=== PATIENT | male | born 1950 | race Caucasian/White ===

== ENCOUNTER 2019-05-13 17:47 | Emergency (ER) | payer OTHER ==
[2019-05-13] MEDS ORDERED: TETANUS & DIPHTHERIA TOX,ADULT 0.5 ML VIAL ONE (18:40)
--- NOTE | 2019-05-13 19:05 | RAD REPORT ---
EXAM DESCRIPTION: - Finger-Thumb Left - 05/13/2019 6:46 pm CLINICAL HISTORY: laceration injury COMPARISON: None. TECHNIQUE: A three-view left thumb examination was performed. FINDINGS: No fracture or acute bone finding. The first MCP joint and IP joint show no suspicious fin dings. No foreign body in the soft tissues of the thumb. No radiographic finding that would indicate intra-articular extension of the laceration. IMPRESSION: No acute bone, joint or soft tissue finding.
[2019-05-13] MEDS ORDERED: LIDOCAINE 1% MPF 5 ML VIAL ONE (19:14)
[2019-05-13] MEDS ORDERED: BUPIVACAINE 0.5% PF 10 ML VIAL ONE (19:14)
[2019-05-13] MEDS ORDERED: DOXYCYCLINE 100 MG CAP PO ONE (19:34)
--- NOTE | 2019-05-13 19:44 | ER ---
Nurse's Notes [facility] Name: James Nicolas Age: 68 yrs Sex: Male : 1950 Arrival Date: 05/13/2019 Time: 17:48 Bed 7 Private MD: Diagnosis: Laceration without foreign body of left thumb without damage to nail Presentation: 05/13 17:57 Presenting complaint: Patient states: left thumb laceration with a filet knife while sv cutting fish. Transition of care: patient was not received from another setting of care. Complicating Factors: There are no complicating factors for this patient. Onset of symptoms was May 13, 2019 at 11:00. Risk Assessment: Do you want to hurt yourself or someone else? Patient reports no desire to harm self or others. Initial Sepsis Screen: Does the patient meet any 2 criteria? No. Patient's initial sepsis screen is negative. Does the patient have a suspected source of infection? No. Patient's initial sepsis screen is negative. Care prior to arrival: None. 17:57 Method Of Arrival: Ambulatory sv 17:57 Acuity: TO 3 sv Historical: - Allergies: 17:57 No Known Drug Allergies; sv - Home Meds: 18:04 Phenytoin Oral [Active]; aa5 - PMHx: 18:04 epilepsy; aa5 - PSHx: 17:57 Carpal Tunnel Repair; sv - Immunization history:: Last tetanus immunization: unknown. - Ebola Screening: : No symptoms or risks identified at this time. Screenin:04 Abuse screen: Denies threats or abuse. Nutritional screening: No deficits noted. aa5 Tuberculosis screening: No symptoms or risk factors identified. Fall Risk Secondary diagnosis (15 points) seizures, Total Day Fall Scale indicates No Risk (0-24 pts). Assessment: 18:04 General: Appears comfortable, Behavior is calm, cooperative. Pain: Complains of pain in aa5 knuckle of left thumb Pain currently is 0 out of 10 on a pain scale. Neuro: Level of Consciousness is awake, alert, obeys commands, Oriented to person, place, time, situation. Cardiovascular: Patient's skin is warm and dry. Respiratory: Airway is patent Respiratory effort is even, unlabored, Respiratory pattern is regular, symmetrical. GI: No signs and/or symptoms were reported involving the gastrointestinal system. : No signs and/or symptoms were reported regarding the genitourinary system. EENT: No signs and/or symptoms were reported regarding the EENT system. Derm: Skin is pink, warm \\T\\ dry. Musculoskeletal: Range of motion: intact in all extremities. Injury Description: Laceration sustained to knuckle of left thumb is approximately 1cm long, no active bleeding noted. Pt states "I put some glue and iodine on it" was sustained 6-12 hours ago. 18:44 Reassessment: Patient is alert, oriented x 3, equal unlabored respirations, skin aa5 warm/dry/pink. Awaiting x-ray results . 19:08 General: Appears comfortable, Behavior is appropriate for age. Pain: Denies pain. ea Neuro: Level of Consciousness is awake, alert, obeys commands, Oriented to person, place, time, situation. Cardiovascular: Patient's skin is warm and dry. Respiratory: Airway is patent Respiratory effort is even, unlabored, Respiratory pattern is regular, symmetrical. Derm: Skin is pink, warm \\T\\ dry. Injury Description: Laceration sustained to palmar aspect of distal phalanx of left thumb was sustained 6-12 hours ago. 19:52 Reassessment: Patient and/or family updated on plan of care and expected duration. Pain ea level reassessed. Patient is alert, oriented x 3, equal unlabored respirations, skin warm/dry/pink. Discharge instruction given to patient, verbalized the understanding of instruction. Pt left ED ambulatory accompanied by family. Vital Signs: 17:57 BP 133 / 91; Pulse 62; Resp 16; Temp 97; Pulse Ox 98% ; Weight 68.49 kg; Height 5 ft. 8 sv in. (172.72 cm); Pain 0/10; 19:44 BP 130 / 80; Pulse 60; Resp 18; Pulse Ox 98% on R/A; ea 17:57 Body Mass Index 22.96 (68.49 kg, 172.72 cm) sv ED Course: 17:48 Patient arrived in ED. as 17:57 Triage completed. sv 18:01 Cassidy Tony, RN is Primary Nurse. aa5 18:04 Arm band placed on Patient placed in an exam room, on a stretcher. aa5 18:04 Patient has correct armband on for positive identification. aa5 18:18 Arnaldo Boyle PA is PHCP. cp 18:18 Erasmo Hall MD is Attending Physician. cp 18:46 XRAY Finger-Thumb Left In Process Unspecified. EDMS 18:59 Report given to Maricarmen, SRIDEVI and SRIDEVI Rust. aa5 19:46 No provider procedures requiring assistance completed. Patient did not have IV access ea during this emergency room visit. 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 Lot #: [id number]. } Route: IM; Site: right deltoid; 19:37 Follow up: Response: No adverse reaction ea 19:31 Not Given (Physician Discretion): Lidocaine (1 %) 10 ml 5 ml Infiltration once; to ea bedside 19:31 Not Given (Physician Discretion): Bupivacaine (0.5 %) 10 ml 10 ml Infiltration once ea 19:36 Drug: Doxycycline 100 mg Route: PO; ea 19:46 Follow up: Response: No adverse reaction ea Outcome: 19:43 Discharge ordered by MD. cp 19:53 Discharged to home ambulatory, with family. rr5 19:53 Condition: stable 19:53 Discharge instructions given to patient, Instructed on discharge instructions, follow up and referral plans. medication usage, Demonstrated understanding of instructions, follow-up care, medications, Prescriptions given X 1. 19:54 Patient left the ED. ea Signatures: Dispatcher [employer] EDSC Anay Garcia, Maribell Dugan RN, Audri, RN RN aa5 Arnaldo Boyle PA PA cp Antunez, Elena, RN RN ea Roque, Raymond, RN RN rr5
--- NOTE | 2019-05-13 19:44 | EDPHYS ---
Physician Documentation [facility] Name: James Nicolas Age: 68 yrs Sex: Male : 1950 Arrival Date: 05/13/2019 Time: 17:48 Bed 7 Private MD: ED Physician Erasmo Hall HPI: 05/13 18:24 This 68 yrs old Male presents to ER via Ambulatory with complaints of cp Laceration - Thumb. 18:25 The patient or guardian reports injury, a laceration. cp 18:25 Context: resulted from knife used to cut pieces of fish. cp 18:25 The complaints affect the dorsal side interphalangeal joint left thumb. Onset: The cp symptoms/episode began/occurred today. Associated signs and symptoms: Pertinent negatives: cyanosis distally, decreased sensation distally. Patient reports he cleaned wound and applied liquid stitch to wound. Historical: - Allergies: 17:57 No Known Drug Allergies; sv - Home Meds: 18:04 Phenytoin Oral [Active]; aa5 - PMHx: 18:04 epilepsy; aa5 - PSHx: 17:57 Carpal Tunnel Repair; sv - Immunization history:: Last tetanus immunization: unknown. - Ebola Screening: : No symptoms or risks identified at this time. ROS: 18:24 Constitutional: Negative for fever, poor PO intake. cp 18:24 Cardiovascular: Negative for chest pain. 18:24 Respiratory: Negative for cough, shortness of breath, wheezing. 18:24 Abdomen/GI: Negative for abdominal pain, vomiting, diarrhea, constipation. 18:24 Skin: Positive for laceration(s), of the dorsal aspect left thumb. 18:24 All other systems are negative. Exam: 18:35 Constitutional: The patient appears in no acute distress, alert, awake, well developed, cp well nourished. 18:35 Head/Face: Normocephalic, atraumatic. cp 18:35 Skin: cellulitis, is not appreciated, injury, laceration(s), the wound is approximately 2 cm(s), of the dorsal aspect interphalangeal joint left thumb, that can be described as no foreign body, linear, without bleeding, wound closed due to applied liquid stitch. Vital Signs: 17:57 BP 133 / 91; Pulse 62; Resp 16; Temp 97; Pulse Ox 98% ; Weight 68.49 kg; Height 5 ft. 8 sv in. (172.72 cm); Pain 0/10; 19:44 BP 130 / 80; Pulse 60; Resp 18; Pulse Ox 98% on R/A; ea 17:57 Body Mass Index 22.96 (68.49 kg, 172.72 cm) sv MDM: 18:23 Patient medically screened. cp 19:42 Data reviewed: vital signs, nurses notes, radiologic studies, plain films. cp 19:42 Differential diagnosis: open fracture, simple laceration, cellulitis. Test cp interpretation: by ED physician or midlevel provider: plain radiologic studies, xrays of left thumb negative for fracture. Counseling: I had a detailed discussion with the patient and/or guardian regarding: the historical points, exam findings, and any diagnostic results supporting the discharge/admit diagnosis, radiology results, to return to the emergency department if symptoms worsen or persist or if there are any questions or concerns that arise at home. Response to treatment: the patient's symptoms have markedly improved after treatment. ED course: VSS. Wound cleaned and splinted. Patient declines having liquid stitch removed. Tetanus updated and RX for oral doxycycline given. Will discharge to home for continued monitoring. 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 Lot #: [id number]. } Route: IM; Site: right deltoid; 19:37 Follow up: Response: No adverse reaction ea 19:31 Not Given (Physician Discretion): Lidocaine (1 %) 10 ml 5 ml Infiltration once; to ea bedside 19:31 Not Given (Physician Discretion): Bupivacaine (0.5 %) 10 ml 10 ml Infiltration once ea 19:36 Drug: Doxycycline 100 mg Route: PO; ea 19:46 Follow up: Response: No adverse reaction ea Disposition: 20:00 Chart complete. cp 05/14 07:46 Co-signature as Attending Physician, Erasmo Hall MD. Disposition: 10/10/19 19:43 Discharged to Home. Impression: Laceration without foreign body of left thumb without damage to nail. - Condition is Stable. - Discharge Instructions: Laceration Care, Adult. - Prescriptions for Doxycycline Hyclate 100 mg Oral Tablet - take 1 tablet by ORAL route every 12 hours; 20 tablet. - Medication Reconciliation Form, Thank You Letter, Antibiotic Education, Prescription Opioid Use form. - Follow up: Private Physician; When: 48 Hours; Reason: Wound Recheck. - Problem is new. - Symptoms have improved. Signatures: Dispatcher [employer] EDAnay Hartmann, RN RN Cassidy Lugo RN RN aa5 Arnaldo Boyle PA PA cp Antunez, Elena, RN RN ea Starr, Gregory, MD MD gs Corrections: (The following items were deleted from the chart) 05/13 19:46 19:11 Dressing - Wound ordered. [facility] 19:46 19:11 Sterile Gloves ordered. [facility] :46 19:11 Setup Suture Tray ordered. [facility] 19:54 19:43 05/13/2019 19:43 Discharged to Home. Impression: Laceration without foreign body ea of left thumb without damage to nail. Condition is Stable. Forms are Medication Reconciliation Form, Thank You Letter, Antibiotic Education, Prescription Opioid Use. Follow up: Private Physician; When: 48 Hours; Reason: Wound Recheck. Problem is new. Symptoms have improved. 05/14 19:19 19:15 The complaints affect the dorsal side interphalangeal joint left thumb, cp cp
[2019-05-13 19:58] VITALS: TEMP 97; O2SAT 98
[2019-05-13 19:59] VITALS: BP 130/80
== END 2019-05-13 19:54 | disposition home or self-care (01) ==
LOC: ER 17:47
DX: S61.012A Laceration without foreign body of left thumb without damage to nail, initial encounter (principal); W26.0XXA Contact with knife, initial encounter; Y93.89 Activity, other specified; Y92.9 Unspecified place or not applicable; Z23 Encounter for immunization; G40.909 Epilepsy, unspecified, not intractable, without status epilepticus
CPT/HCPCS: 90471; 90714; 99283